=== PATIENT | female | born 1965 | race Caucasian/White ===

== ENCOUNTER → 2018-01-19 | Outpatient (CLI) | payer OTHER ==
[~2018-01-19] MED LIST: GLUTAMINE PO; KLONOPIN 1MG1 MG PO; LASIX 20MG TABL20 MG PO; MULTI-VITAMIN W1 TA1 PO; NATURAL E400 IU PO
== END ==
LOC: COL.RAD 08:13
DX: C50.412 Malignant neoplasm of upper-outer quadrant of left female breast (principal); K76.9 Liver disease, unspecified
CPT/HCPCS: Q9967

== ENCOUNTER → 2018-04-21 | Outpatient (CLI) | payer OTHER | LOC: COL.VAS 07:52 | DX: Z51.11 Encounter for antineoplastic chemotherapy (principal); C50.412 Malignant neoplasm of upper-outer quadrant of left female breast; I34.0 Nonrheumatic mitral (valve) insufficiency ==

== ENCOUNTER → 2019-03-16 | Outpatient (CLI) | payer OTHER | LOC: MC.RAD 07:20 | DX: Z12.31 Encounter for screening mammogram for malignant neoplasm of breast (principal) ==

== ENCOUNTER → 2020-01-02 | Outpatient (CLI) | payer OTHER ==
[~2020-01-02] MED LIST changes: +ANTIVERT 25MG25 MG PO; +ARIMIDEX1 MG PO; +BUSPAR10 MG PO; +CELEXA 20MG20 MG/TAB PO; +FLEXERIL 1010 MG/TAB PO; +LINZESS72 MCG PO; +NATURAL MAGNES200 MG PO; +NEURONTIN300 MG/CAP PO; +PRILOSEC 20MG20 MG PO; +PROAIR HFA0.09 MG/AC IH; +REQUIP2 MG PO; +RESTORIL 1515 MG/CAP PO; +RT ADVAIR HFA 1112 G IH; +TYLENOL 325MG325 MG PO; +UBRELVY50 MG PO; +ULTRAM 50MG TAB50 MG PO; +ZYRTEC 10MG10 MG PO
== END ==
LOC: COL.CAR 12-26 07:30 → COL.LAB 08:00 → EDSTATUS 01-08 07:45 → COL.CAR 01-08 07:45
DX: Z20.828 Contact with and (suspected) exposure to other viral communicable diseases (principal)

== ENCOUNTER 2020-01-31 10:48 | Day surgery (SDC) | payer OTHER ==
[2020-01-31] VITALS (9 sets, daily range): BP systolic 117–146; BP diastolic 75–95; PULSE 64–79; TEMP 98
[~2020-01-31 10:48] MED LIST changes: -ANTIVERT 25MG25 MG PO; -ARIMIDEX1 MG PO; -BUSPAR10 MG PO; -CELEXA 20MG20 MG/TAB PO; -FLEXERIL 1010 MG/TAB PO; -LINZESS72 MCG PO; -NATURAL MAGNES200 MG PO; -NEURONTIN300 MG/CAP PO; -PRILOSEC 20MG20 MG PO; -PROAIR HFA0.09 MG/AC IH; -REQUIP2 MG PO; -RESTORIL 1515 MG/CAP PO; -RT ADVAIR HFA 1112 G IH; -TYLENOL 325MG325 MG PO; -UBRELVY50 MG PO; -ULTRAM 50MG TAB50 MG PO; -ZYRTEC 10MG10 MG PO
[2020-01-31 11:46] LABS: HEMATOCRIT 40.3 % (37.0-47.0); HEMOGLOBIN 13.6 g/dl (12.5-16.0); MEAN CELL VOLUME 89 fl (80.0-100.0); MEAN CORPUSCULAR HEMOGLOBIN 30 pg (27.0-31.0); MEAN CORPUSCULAR HGB CONC 34 g/dl (33.0-37.0); MEAN PLATELET VOLUME 9.3 fl (7.4-10.4); PLATELET COUNT 331 K/mm3 (130-400); RED BLOOD COUNT 4.54 M/mm3 (4.10-5.30); REDCELL DISTRIBUTION WIDTH-CV 12.7 % (11.5-14.5)
[2020-01-31 11:53] LABS: PROTHROMBIN TIME 11.3 SECONDS (9.7-12.8)
[2020-01-31 11:55] LABS: PARTIAL THROMBOPLASTIN TIME 30.4 SECONDS (26.0-37.0)
[2020-01-31 11:56] LABS: CALCIUM 9.7 mg/dL (8.4-10.2); CREATININE, serum 0.93 (0.52-1.25)
[2020-01-31] MEDS ORDERED: TYLENOL 325MG325 MG PO (12:41)
[2020-01-31] MEDS ORDERED: RT ADVAIR HFA 1112 G IH (12:42)
[2020-01-31] MEDS ORDERED: ARIMIDEX1 MG PO (12:43)
[2020-01-31] MEDS ORDERED: BUSPAR10 MG PO (12:45)
[2020-01-31] MEDS ORDERED: ZYRTEC 10MG10 MG PO (12:45)
[2020-01-31] MEDS ORDERED: CELEXA 20MG20 MG/TAB PO (12:46)
[2020-01-31] MEDS ORDERED: FLEXERIL 1010 MG/TAB PO (12:47)
[2020-01-31] MEDS ORDERED: NEURONTIN300 MG/CAP PO (12:49)
[2020-01-31] MEDS ORDERED: LINZESS72 MCG PO (12:52)
[2020-01-31] MEDS ORDERED: ANTIVERT 25MG25 MG PO (12:53)
[2020-01-31] MEDS ORDERED: NATURAL MAGNES200 MG PO (12:53)
[2020-01-31] MEDS ORDERED: PRILOSEC 20MG20 MG PO (12:54)
[2020-01-31] MEDS ORDERED: PROAIR HFA0.09 MG/AC IH (12:54)
[2020-01-31] MEDS ORDERED: REQUIP2 MG PO (12:55)
[2020-01-31] MEDS ORDERED: ULTRAM 50MG TAB50 MG PO (12:58)
[2020-01-31] MEDS ORDERED: RESTORIL 1515 MG/CAP PO (12:58)
[2020-01-31] MEDS ORDERED: UBRELVY50 MG PO (12:59)
--- NOTE | 2020-01-31 13:41 | NUR ---
SEE MERGE FOR ALL MEDICATION ADMINISTRATION TIMES, INTRA AND POST SEDATION ASSESSMENT
--- NOTE | 2020-01-31 14:30 | NUR ---
Report from Adamaris CABALLERO. 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 Alert and oriented, denies pain and needs at this time. Right groin site dressing CD&I, soft to palpation and good pedal pulses noted. Right tband with 12 cc air CD&I, good pulses noted and cap refill < 3 secs noted. VSS .
--- NOTE | 2020-01-31 16:58 | NUR ---
15 cc air released from right Tband and dressing applied. Right groin site remains soft and CD&I. INT discontinued intact. Discharge instructions given. Transferred to private car by vielka
== END 2020-01-31 17:00 | disposition home or self-care (01) ==
LOC: COL.CAR 10:48
PROVIDERS: Internal Medicine Cardiovascular Disease
DX: R06.02 Shortness of breath (principal); Z87.891 Personal history of nicotine dependence; Z85.3 Personal history of malignant neoplasm of breast
CPT/HCPCS: J1644; J2250; J3010